=== PATIENT | male | born 1960 | race Caucasian/White ===

== ENCOUNTER → 2017-05-17 | Day surgery (SDC) | payer OTHER ==
[~2017-05-17] VITALS: Ht 180.3 cm; Wt 86.0 kg
[~2017-05-17] MED LIST: *MEPERIDINE 25 MG INJ VIAL PERIprocedural Use ONLY ONE; ACETAMINOPHEN/HYDROcodone 325 MG/5 MG TAB ONE; CHLORHEXIDINE GLUCONATE 2 % 1 PACK (2 CLOTHS) TOPICAL PRN; CHLORHEXIDINE GLUCONATE 4% SOLN 120 ML BTL TOPICAL SCH; DEXAMETHASONE SOD PHOS 4 MG/ML VIAL IV ONE; FAMOTIDINE 20 MG/2 ML VIAL ONE; HYDR-3516 PO; KETOROLAC TROMETHAMINE 30 MG/ML (IVP) VIAL ONE; LACTATED RINGER'S 1000 ML IV PRN; LIDOCAINE HCL 1% PF 5 ML SYRINGE OTHER ONE; METOPROLOL TARTRATE 25 MG TAB PO PRN; MIDAZOLAM HCL 2 MG/2 ML VIAL ONE; ONDANSETRON HCL 4 MG/2 ML VIAL IV PUSH ONE; POVIDONE IODINE 5% (ANTISEPSIS KIT) 4 APPLICATIONS EACH NARE PRN; PROPOFOL 200 MG/20 ML AMP IV ONE; SODIUM CHLORID 0.9% 500 ML IV PRN; ePHEDrine/NS 25 MG/5 ML SYRINGE IV ONE; fentaNYL CITRATE 250 MCG/5 ML AMP ONE
[2017-05-17 08:48] VITALS: PULSE 98
[2017-05-17] MEDS: BUPIVACAINE/EPINEPHRINE 0.25% 50 ML VIAL ONE ×2 (09:32→09:35)
[2017-05-17] MEDS: TRIAMCINOLONE ACETONIDE 40 MG/ML VIAL ONE ×2 (09:32→09:35)
--- NOTE | 2017-05-17 10:34 | MP ---
cc: Shan Escoto MD DATE OF OPERATION: 05/17/2017 DATE OF OPERATION: 05/17/2017 SURGEON: Shan Escoto MD PREOPERATIVE DIAGNOSES: Internal derangement, left knee joint with posttraumatic arthritis of left knee joint and probable tear of the medial meniscus. POSTOPERATIVE DIAGNOSES: Internal derangement, left knee joint with posttraumatic arthritis of left knee joint and probable tear of the medial meniscus. PROCEDURE PERFORMED: 1. Arthroscopic debridement and chondroplasty of the medial compartment. 2. Debridement of the partial tear of the anterior cruciate ligament at femoral attachment. 3. Chondroplasty of intercondylar fossa. 4. Subtotal medial menisectomy. DETAILS OF PROCEDURE: The patient was placed on the operating table in the supine position and adequate general anesthesia was administered by the anesthesiologist. The patient's left knee was then prepped and draped in the usual sterile fashion. A timeout was called and the patient's name, procedure, location, etc. were fully verified. Esmarch bandages were applied and a pneumatic tourniquet was inflated to 300. An anterior lateral portal was used for the scope and a systematic examination of the joint revealed the above findings. The anterior medial postal was created for instrumentation and a motorized resector was placed into the medial compartment and the medial femoral condyle, medial tibial plateau which had large osteochondral lesions consistent with posttraumatic arthritis was smoothed and a chondroplasty performed. There appeared to be absence of most of the posterior horn extending to the middle one-third with an abrupt change at the middle one-third. This was balanced better at its edge where there appeared to be some surface tearing. The anterior cruciate ligament was identified and was extremely frayed and in fact partially ruptured from its femoral attachment and this was debrided with the same instrument. The lateral compartment revealed articular surfaces and meniscus intact. The patellofemoral joint was also satisfactorily preserved. At initial instrumentation, we did evacuate several milliliters of dark yellow fluid. A thorough irrigation of the joint was carried out and the instruments were then removed. The 2 stab wounds were closed with simple 3-0 nylon, an intraarticular injection through the lateral portal was carried out with 1 mL of Kenalog/40 mg, 1 mL of 2% lidocaine, and 1 mL of 0.5% Marcaine. The needle was removed and a bulky dressing was applied around the knee joint. The tourniquet was deflated after 15 minutes. Sponge count and needle counts reported correct x 2. The estimated blood loss was nil. The patient tolerated the procedure well and went to recovery room in satisfactory condition. MD JAROD Urbano/INOCENCIO , 09:46 AM , 10:32 AM
[2017-05-17 10:42] VITALS: PULSE 85
[2017-05-17 11:30] VITALS: BP 124/66; PULSE 78; RESP 16; TEMP 97; O2SAT 99
== END | disposition home or self-care (01) ==
LOC: PHSDC 06:49
PROVIDERS: ATTEND Orthopaedic Surgery
DX: S83.242A Other tear of medial meniscus, current injury, left knee, initial encounter (principal); M17.32 Unilateral post-traumatic osteoarthritis, left knee; S83.512A Sprain of anterior cruciate ligament of left knee, initial encounter
CPT/HCPCS: 01400; 29881; E0113; J1100; J1885; J2175; J2250; J2405; J3010; J3301; J7120